=== PATIENT | female | born 1950 | race Caucasian/White ===

== ENCOUNTER 2020-04-23 14:05 | Outpatient (REF) | payer MEDICARE, OTHER, SELFPAY ==
[2020-04-28 02:47] LABS: SARS-CoV-2 RNA Undetected (Undetected); SARS-CoV-2 Specimen Source Nasopharynx
== END 2020-04-23 14:25 ==
LOC: NCHCN 14:05
PROVIDERS: PCP Nurse Practitioner Family; Visit Provider Nurse Practitioner Family
DX: Z20.828 Contact with and (suspected) exposure to other viral communicable diseases (principal)
CPT/HCPCS: U0003

== ENCOUNTER 2020-05-10 00:33 | Outpatient (CLI) | payer MEDICARE, OTHER, SELFPAY ==
--- NOTE | 2020-05-10 | DI.DEXA_ITS ---
EXAM: XR DEXA BONE DENSITY W/WO LAURA CLINICAL HISTORY: SCREENING FOR OSTEOPOROSIS IN POSTMENOPAUSAL WOMAN,Z78.0,PREVENTATIVE TECHNIQUE: COMPARISON: No exams were available for comparison FINDINGS: Lateral Spine Image: Unremarkable. No compression deformities identified. Left hip: Total T-Score: 0.7 Total Z-Score: 2.2 T- and Z-scores: Within normal limits. Lumbar Spine: Total T-Score: 1.5 Total Z-Score: 3.6 T- and Z-scores: Within normal limits. IMPRESSION: No evidence of osteoporosis.
--- NOTE | 2020-05-10 | DI.MAMMO_ITS ---
EXAM: MG MAMMO SCREENING CLINICAL HISTORY: SCREENING, Z12.31,[facility],Z00.00 TECHNIQUE: Bilateral full field digital CC and MLO mammographic images were obtained with 3D tomosyn thesis and utilizing computer aided detection (CAD). COMPARISON: Available for comparison. FINDINGS: Masses/Architectural Distortion: None seen. Microcalcifications: No suspicious pleomorphic-type are seen. Skin Thickening/Nipple Retraction: None. IMPRESSION: 1. No significant interval change with no specific features of malignancy noted. 2. Unless there is more urgent need, screening mammography is recommended, as per [employer] guidelines. BI-RADS Category 1 - Negative Breast Density - Category B - Scattered areas of fibroglandular density A negative radiographic report should not delay biopsy if a dominant or clinically suspicious mass is present. Up to ten percent of cancers are not identified on mammography. A negative report may reinforce clinical impression. Adenosis and dense breasts may obscure an underlying neoplasm. False positive reports average 6 to 10%. Patient will receive a letter notifying them of these results.
== END 2020-05-10 00:53 ==
PROVIDERS: Visit Provider Family Medicine
DX: Z12.31 Encounter for screening mammogram for malignant neoplasm of breast (principal); Z00.00 Encounter for general adult medical examination without abnormal findings; Z78.0 Asymptomatic menopausal state
CPT/HCPCS: 77063; 77067; 77080

== ENCOUNTER 2021-05-30 15:14 | Emergency (ER) | payer OTHER, SELFPAY ==
[2021-05-30 15:20] VITALS: BP 136/82; PULSE 84; RESP 16; TEMP 36.8; O2SAT 96
--- NOTE | 2021-05-30 15:39 | W.ED.GENAD ---
Discharge Plan Disposition Patient Disposition: HOME Condition: Stable Discharge Details Clinical Impression: Allergic reaction Primary Care Provider: Radha Kline ED Provider: Nickie Zaragoza Home Meds and New Rx's Prescriptions: New prednisone 20 mg tablet 40 mg PO DAILY Qty: 6 RF: 0 Continued simvastatin 40 MG tablet 40 mg PO QPM RF: 0 omeprazole 20 MG capsule,delayed release(DR/EC) 20 mg PO DAILY RF: 0 lisinopril-hydrochlorothiazide 1 EACH tablet 1 tab PO DAILY RF: 0 metformin 500 mg tablet 500 mg PO BID RF: 0 Discharge Instructions Instructions: Prednisone (By mouth), General Allergic Reaction (ED) Additional Instructions: You appear to be having in general and allergic reaction. Please take the steroids as prescribed. You were given 1 dose of steroids while here. This is a once daily dosing. Next dose will be due tomorrow afternoon. You may continue with Benadryl or other antihistamine such as Claritin to help with your medic management. You may also try hydrocortisone cream to help with itching. Please try to avoid scratching it as possible. If you develop difficulty breathing, intraoral lesions or other new/worsening symptoms care urgently once again. Otherwise, please follow-up with your primary care in the next 1 to 2 weeks for reevaluation and discuss potential need for referral for allergy testing. Referrals: Radha Kline [Primary Care Provider] - Discharge Data Discharge Date/Time-TO BE ENTERED AT DEPARTURE: 05/30/21 16:01 Medical Decision Making Patient is a pleasant 70-year-old female presenting today with chief complaint of allergic reaction. She reports that she began having itching to her bilateral upper extremities face 3 days ago. Since that time, the symptoms have been worsening and spreading. She now has a urticarial rash to the chest, back and lower face. She denies any difficulty breathing. Used Claritin yesterday. No intraoral lesions. On exam, patient appears nontoxic. No intraoral lesions. Lungs clear, no wheezing or stridor. Urticarial rash to lower face, upper chest, upper back. Her hx and exam is not consistent with anaphylaxis. She has no respiratory involvement. As symptoms have been progressively worsening and this is now on her face, I feel that steroids are appropriate. Will give her a steroid burst. She and I discussed these meds and possible SE. Encouraged close f/u with PCP. She received first dose here. Return precautions discussed, in particular signs of worsening reaction. All of her quesitons and concerns were addressed, she is in agreement with this plan. HPI General Mode of arrival: ambulatory. Date/Time Provider Initiated Documentation: 05/30/21 15:39. Limitations to Documentation: no limitations. Information obtained by: patient and RN notes reviewed. History of Present Illness 70 year old F presents to the emergency department with the chief complaint of allergic reaction, described as moderate, Quality is described as other (itching), and is localized to the face, chest, back, left, right and upper extremity. Patient started experiencing this day(s) (3) and it has been constant. No relieving factors improve symptom(s), No exacerbating factors reported . Patient notes no other symptoms.. Patient did receive the following treatments prior to arrival, none Related Data Home Medications Medication Instructions Recorded Confirmed lisinopril-hydrochlorothiazide 1 tab PO DAILY 04/03/14 05/30/21 omeprazole 20 mg PO DAILY 04/03/14 05/30/21 simvastatin 40 mg PO QPM 04/03/14 05/30/21 metformin 500 mg PO BID 05/30/21 05/30/21 prednisone 40 mg PO DAILY #6 tab 05/30/21 Previous Rx's Medication Instructions Recorded prednisone 40 mg PO DAILY #6 tab 05/30/21 Allergies Allergy/AdvReac Type Severity Reaction Status Date / Time No Known Allergies Allergy Unverified 05/30/21 15:28 General Stated Complaint: Allergic ACACIA: 3 Review of Systems Constitutional Constitutional: Reports as per HPI, Denies chills, Denies fever(s) and Denies headache(s) Eyes Eyes: Reports as per HPI ENT Ears, Nose, Mouth, and Throat: Reports as per HPI and Denies headache(s) Cardiovascular Cardiovascular: Denies chest pain Respiratory Respiratory: Reports as per HPI Gastrointestinal Gastrointestinal: Reports as per HPI Integumentary/Breasts Skin/Breast: Reports as per HPI Neurologic Neurologic: Denies headache(s) [facility] Social History Smoking/Tobacco Use Status: Never Smoking risk assessment performed?: Yes Alcohol Intake: current Alcohol Intake frequency: 0-2 drinks per day Alcohol type: beer, wine and hard liquor Drug use: Never Do you feel safe at home: Yes Do you feel safe in your relationship?: Yes Exam Const General: cooperative, healthy appearing, comfortable, no acute distress and well developed Nutritional Appearance: average body habitus and well nourished Orientation: alert, awake and oriented x3 HENMT Head: normal to inspection Ears: hearing grossly normal bilaterally Face and sinus: abnormal facial exam (urticarial rash lower face, R>L sides) Mouth: oral mucosae normal, lip normal, tongue normal, oropharynx normal, moist mucous membranes, no drooling and no muffled voice Teeth and gingiva: dentition normal Throat: posterior oropharynx normal Eyes General: appearance normal, both eyes and all related structures Neck Neck: normal visual inspection, full ROM, no lymphadenopathy, no meningeal signs and trachea midline Chest Chest: rash (urticarial rash noted) Resp Effort & Inspection: normal respiratory effort, able to speak in complete sentences, no respiratory distress and no use of accessory muscles Auscultation: clear to auscultation bilaterally Cardio Rate: regular rate Rhythm: regular rhythm Heart Sounds: S1 normal and S2 normal Skin Rashes: rashes noted Neuro General: patient alert and patient awake Cognition: normal cognition Speech: speech normal Gait: normal gait Psych Appearance: grossly normal and well kempt Mental Status: mental status grossly normal Speech and Movement: speech and movement normal Course Vital Signs Vital signs: Vital Signs Temperature 36.8 C 05/30/21 15:20 Pulse 84 05/30/21 15:20 Respiratory Rate 16 05/30/21 15:20 Blood Pressure 136/82 05/30/21 15:20 Pulse Oximetry 96 05/30/21 15:20 Temperature 36.8 C 05/30/21 15:20 Temperature Source Oral 05/30/21 15:20 Pulse 84 05/30/21 15:20 Respiratory Rate 16 05/30/21 15:20 Respiratory Effort Non-Labored 05/30/21 15:29 Respiratory Pattern Normal 05/30/21 15:29 Blood Pressure 136/82 05/30/21 15:20 Blood Pressure Position Supine 05/30/21 15:20 Pulse Oximetry 96 05/30/21 15:20 Oxygen Delivery Method Room Air 05/30/21 15:20 Oxygen Flow Rate 0 05/30/21 15:20 Pain Level 0 05/30/21 15:20
[2021-05-30] MEDS: predniSONE 20 MG TAB 40 MG PO (15:55)
[2021-05-30 16:12] VITALS: BP 136/82; PULSE 84; RESP 16; O2SAT 96
== END 2021-05-30 16:01 | disposition home or self-care (01) ==
PROVIDERS: Emergency Provider Physician Assistant; PCP Nurse Practitioner Family
DX: T78.49XA Other allergy, initial encounter (principal); L29.8 Other pruritus; L50.0 Allergic urticaria
CPT/HCPCS: 99283; J7512

== ENCOUNTER 2021-05-30 16:13 | Outpatient (REF) | payer OTHER, SELFPAY ==
[2021-06-01 12:29] LABS: COVID-19 RT-PCR UVMMC Result Negative (Negative)
== END 2021-05-30 16:14 | disposition home or self-care (01) ==
LOC: NCHCN 16:13
PROVIDERS: PCP Nurse Practitioner Family; Visit Provider Nurse Practitioner Family
DX: Z20.822 Contact with and (suspected) exposure to COVID-19 (principal); R05 Cough
CPT/HCPCS: U0003

== ENCOUNTER 2021-07-31 02:28 | Outpatient (CLI) | payer OTHER, SELFPAY ==
--- NOTE | 2021-07-31 | DI.MAMMO_ITS ---
Exam(s) MAMMO SCREENING EXAM: MAMMO SCREENING CLINICAL HISTORY: SCREENING,Z12.39,[id number]. TECHNIQUE: Bilateral full field digital CC and MLO mammographic images were obtained with 3D tomosyn thesis and utilizing computer aided detection (CAD). COMPARISON: Prior mammograms dating back to 2011, the most recent being April 2020. FINDINGS: There are no new spiculated masses nor malignant appearing microcalcification groups. Benign microcalcifications and macrocalcifications again noted bilaterally. There is no significant architectural distortion nor skin thickening-retraction. IMPRESSION: No radiographic evidence of malignancy. BI-RADS Category 1 - Negative Breast Density - Category B - Scattered areas of fibroglandular density Breast density Category C or D implies that the patient has dense breast tissue. Dense breast tissue can make it harder to find cancer on a mammogram. Dense breast tissue is also associated with an incr eased risk of breast cancer. This information about the result of the mammogram report was provided to the patient to raise their awareness. Use this report when you speak with the patient about their risks for breast cancer, which includes their family history. At that time, you may recommend additional screening tests (Ultrasoun d or MRI) as these tests may add significant information. A negative radiographic report should not delay biopsy if a dominant or clinically suspicious mass is present. Up to ten percent of cancers are not identified on mammography. A negative report may reinforce clinical impression. Adenosis and dense breasts may obscure an underlying neoplasm. False positive reports average 6 to 10%. Patient will receive a letter notifying them of these results.
== END 2021-07-31 02:48 ==
PROVIDERS: PCP Nurse Practitioner Family; Visit Provider Pediatrics
DX: Z12.31 Encounter for screening mammogram for malignant neoplasm of breast (principal); R92.0 Mammographic microcalcification found on diagnostic imaging of breast
CPT/HCPCS: 77063; 77067

== ENCOUNTER 2022-12-18 09:44 | Day surgery (SDC) | payer OTHER, SELFPAY ==
--- NOTE | 2022-12-17 20:09 | W.PM.DSUDISC ---
Date of service: 12/18/22 Time of Service: 11:22 Discharge Plan Disposition Patient Disposition: Home Condition: Good Discharge Details Reason For Visit: Screening colonoscopy Attending Provider: Matty Jay Primary Care Provider: Radha Kline Home Meds and New Rx's Prescriptions: Continued collegen biotene capsule 1 cap PO DAILY ferrous sulfate 325 mg (65 mg iron) tablet 325 mg PO DAILY simvastatin 40 MG tablet 40 mg PO QPM omeprazole 20 MG capsule,delayed release(DR/EC) 20 mg PO DAILY lisinopril-hydrochlorothiazide 1 EACH tablet 1 tab PO DAILY metformin 500 mg tablet 500 mg PO BID Discontinued polyethylene glycol 3350 17 gram/dose powder 238 g PO ONCE Qty: 238 0RF Rx Instructions: take per colonoscopy instructions bisacodyl [Dulcolax (bisacodyl)] 5 mg tablet,delayed release (DR/EC) 5 mg PO ONCE Qty: 4 0RF Rx Instructions: take per colonoscopy instructions No Action Fish Oil Capsule 1 cap PO Discharge Instructions Instructions: Colorectal Polyps (GEN), Diverticulosis (GEN), Diverticulosis Diet (GEN) Additional Instructions: Taniya, we were able to complete your colonoscopy today without any difficulty. You had a single rectal polyp. I removed this completely. I will let you know when I have the pathology report. Incidentally, you also have some sigmoid diverticulosis. I have attached some information here regarding diverticulosis, and general recommendations. 1. If tolerated, consume a soft, low fiber diet for 1-2 days. 2. Do not drive, drink alcohol, operate machinery, make critical decisions, or do activities that require coordination or balance for 24 hours. 3. Because air was put into your colon during the procedure, expelling air from your rectum (passing gas or farting) is normal. 4. You may not have a bowel movement for 1-3 days because of the colonoscopy prep. This is normal. 5. Go directly to the emergency room if you notice any of the following: Develop chills (warm to touch), or if you have a thermometer and your temperature is above 101 Difficulty breathing or difficultly swallowing Persistent vomiting Severe abdominal pain, other than gas cramps Severe chest pain Black, tarry stools Any bleeding ? exceeding one tablespoon 6. Call your physician if the site where your intravenous was started becomes red, swollen, painful, and warm to touch. 7. Your physician has reviewed your pre-procedure medications. Please continue to take those medications as previously ordered. You will be given specific information/education regarding any changes to your medications before leaving. Activity:: Activity as Tolerated Diet:: As Tolerated Discharge Orders Discharge Orders: Discharge Order (Routine); Ordered 12/17/22 Ordered By: Matty Jay DS: Diagnosis Discharge Diagnosis (1) Screening for colon cancer: Status: Acute Asessment and Plan: There is a single rectal polyp. Follow-up on pathology report
--- NOTE | 2022-12-17 20:11 | W.COLOREPORT ---
Date of service: 12/18/22 Time of Service: : Colonoscopy Report Date of procedure: 12/18/22 Pre-op diagnosis general: Screening colonoscopy Post-op diagnosis procedure note: other (Rectal polyp, diverticulosis) Procedure: Colonoscopy Surgeon: Matty Jay Anesthesia Type: General:No Airway Estimated blood loss (mL): 5 Pathology: other (Rectal polyp) Complications: None Disposition: same day Indications: Taniya is a 72 year old woman here for another screening colonoscopy Prep: Miralax/Dulcolax Procedure Start Time: 10:53 Procedure End Time: :18 Retraction Time: 18 Findings: Single rectal polyp, sigmoid diverticulosis Procedure Description: After the induction of monitored anesthetic care, and with the patient in left lateral decubitus position, I began by performing an external anorectal exam.? Perineum and skin were normal, as was the anal verge.? There was no evidence of external hemorrhoids.? Next, I performed a digital rectal exam.? I did not appreciate any abnormal findings.? Next, I advanced a colonoscope into the rectal vault.? I performed retroflexion.? This was normal.? There was a single 0.25 cm sessile polyp in the rectum. I removed this with cold forcep polypectomy. There was minimal bleeding. Using insufflation, I then advanced the colonoscope beyond the rectal folds and into the sigmoid colon before advancing towards the cecum.? There was sigmoid diverticulosis. the quality of the prep was adequate.? The scope was noted to be in the cecum by identification of the ileocecal valve and appendiceal orifice.? I then began withdrawing the colonoscope using repeated irrigation as necessary for full evaluation of the colonic mucosa. ?Once the scope was withdrawn to the level of the rectum, great care was taken to examine portions of the rectal folds.? Finally, the scope was withdrawn and the patient was brought to the same-day surgery recovery unit as the anesthetic wore off. ?The findings and instructions were shared with the patient prior to discharge.
[2022-12-18 10:03] VITALS: BP 126/75; PULSE 81; RESP 16; TEMP 36.4; O2SAT 98
[2022-12-18] MEDS: Lactated Ringers 1,000 ML 80 ML IV (10:27)
--- NOTE | 2022-12-18 10:30 | W.ANESPRE ---
General Info Date of Service Date Performed: 12/18/22 Height: 5 ft 4 in Weight: 93.6 kg Body Mass Index (BMI): 35.4 Surgical Procedure: Operation Date: 12/18/22 11:20 Proposed Procedure Side Surgeon ginny Jay MD Meds Allergies and Home Medications Allergies Allergy/AdvReac Type Severity Reaction Status Date / Time No Known Allergies Allergy Unverified 12/17/22 09:02 Home Medication Medication Instructions Recorded lisinopril 10 1 tab PO DAILY 04/03/14 mg-hydrochlorothiazide 12.5 mg tablet omeprazole 20 mg capsule,delayed 20 mg PO DAILY 04/03/14 release simvastatin 40 mg tablet 40 mg PO QPM 04/03/14 metformin 500 mg tablet 500 mg PO BID 05/30/21 ferrous sulfate 325 mg (65 mg 325 mg PO DAILY 08/04/22 iron) tablet collegen biotene 1 cap PO DAILY 12/10/22 omega-3 fatty acids 1 cap PO 12/18/22 Current Visit Medications: Current Medications Generic Name Dose Route Start Last Admin Trade Name Thierry PRN Reason Stop Dose Admin Hyoscyamine Sulfate 0.125 mg 12/17/22 20:13 Hyoscyamine 0.125 Mg Sl/Oral/Chew SL DIRECTED PRN Ringer's Solution 1,000 mls @ 80 mls/hr 12/18/22 06:00 12/18/22 10:27 IV 01/16/23 23:59 80 mls/hr INFUSION DIAZ Administration IV Miscellaneous Supplies 1 each 12/18/22 06:00 Iv Access IV 01/16/23 23:59 DIRECTED DIAZ Ondansetron HCl 4 mg 12/17/22 20:13 Ondansetron 4 Mg/2 Ml Vial IVP Q4H PRN PRN Nausea / Vomiting Sodium Chloride 0 ml 12/18/22 06:00 Normal Saline Flush 10 Ml Syr IV 01/16/23 23:59 PRN PRN Sodium Chloride 0 ml 12/18/22 06:00 Normal Saline 10 Ml Vial IJ 01/16/23 23:59 DIRECTED PRN Sterile Water 0 ml 12/18/22 06:00 Water,Injection,Sterile 10 Ml Vial IJ 01/16/23 23:59 DIRECTED PRN PFSH Active Problems Active Problems: Problem Status Onset Code Urinary incontinence R32 Type 2 diabetes mellitus E11.9 Obesity E66.9 Hyperlipidemia E78.5 Hearing loss H91.90 Primary hypertension I10 GERD (gastroesophageal reflux disease) K21.9 Diverticulosis K57.90 Sleep apnea G47.30 Screening for colon cancer Z12.11 Allergic reaction T78.40XA Medical History Medical History Adjustment reaction with anxiety and depression Benign neoplasm of large bowel Cervicalgia Pelvic and perineal pain Tobacco Smoking/Tobacco Use Status: Never Alcohol Alcohol Intake: current Alcohol intake frequency: 0-2 drinks per day Alcohol type: beer, wine and hard liquor Substance Use Substance use: Never Substance use type: does not use Vital Signs and Lab Results Vital Signs Most Recent Vital Signs in EMR: Most Recent Vital Signs Temp Pulse Resp BP Pulse Ox 36.4 C L 81 16 126/75 98 12/18/22 10:03 12/18/22 10:03 12/18/22 10:03 12/18/22 10:03 12/18/22 10:03 Point of Care Results Point of Care Results: Finger Stick Blood Glucose 154 12/18/22 09:56 Lab Results Blood Type / Crossmatch: No Data to Display Complete Blood Count: No Data to Display Complete Metabolic Panel: No Data to Display Liver Function Panel: No Data to Display Coagulation Panel: No Data to Display Cardiac Panel: No Data to Display Arterial Blood Gas: No Data to Display Venous Blood Gas: No Data to Display Pancreas Panel: No Data to Display Thyroid Panel: No Data to Display Infectious Disease: No Data to Display Blood Cultures: No Data to Display Toxicology Panel: No Data to Display Anesthesia Assessment and Plan Anesthesia History Personal History: No History of Anesthesia Complications Family History: No Family History of Anesthesia Complications Exercise Tolerance Exercise Tolerance: Metabolic Equivalents>4 Pertinent Negatives Pertinent Negatives: No Major Cardiovascular Symptoms or Complaints and No Major Pulmonary Symptoms or Complaints Cardiac & Pulmonary Exam Cardiac Exam: Normal S1/S2 Heart Sounds Pulmonary Exam: Clear Bilateral Breath Sounds Implantable Cardiac Device Does patient have a Pacemaker or an ICD?: No Airway Exam Known Difficult Airway: No Mallampati Class: 2 Mouth Opening: Normal (> 3cm) Thyromental Distance: Greater than 3 cm Neck Range of Motion: Full ROM Neck Circumference: Normal Teeth Condition: Normal Dentition ASA Classification ASA Score: ASA 2 Emergency Case?: No NPO Status NPO Status: NPO Clears >2 hours, Solids >8 hours Anesthesia Plan Resuscitation Status: Full Code Anesthesia Technique: General Anesthesia Airway Planned: Natural Airway Monitors Used: Standard Monitors
--- NOTE | 2022-12-18 10:56 | BOWEL_PTH ---
PATIENT: Taniya Zambrano LOC: [facility] U#:[id number] AGE/SX: 72/F ROOM: RE12/18/[address]: Matty Jay MD : 1950 BED: DIS: 12/18/2022 SPEC #: [id number] RECD: 12/18/22 12:08 STATUS: YANG REQ #: [id number] TERESA: 12/18/22 10:[address]: Matty Jay DEPT: Surgical Specimen RECD BY: Hailey Coreas ENTERED: 12/18/22 12:08 SP TYPE: Bowel OTHR DR: Radha Kline Tissues: 1 - BIOPSY BOWEL Procedures: GROSS AND MICRO LEVEL 4 Comments: [id number]
[2022-12-18 11:28] VITALS: BP 117/61; PULSE 72; RESP 16; TEMP 36.2; O2SAT 96
[2022-12-18 12:08] VITALS: BMI 35.4
--- NOTE | 2022-12-18 12:09 | W.ANESPOSTOP ---
Postoperative Evaluation Date, Time and Location Date Performed: 12/18/22 Time Performed: 11:35 Patient Location: Day Surgery Unit Vital Signs Most Recent Imported Vital Signs: Most Recent Vital Signs Temp Pulse Resp BP Pulse Ox 36.2 C L 72 16 117/61 96 12/18/22 11:28 12/18/22 11:28 12/18/22 11:28 12/18/22 11:28 12/18/22 11:28 Pain Score Most Recent Pain Score: Most Recent Pain Score Pain Level 0 12/18/22 11:28 Assessment Mental Status: Awake (Alert & Oriented to Patient Baseline) Airway and Respiratory Function: Patent airway with normal (patient baseline) respiratory exam Cardiovascular Function: Hemodynamically Stable Hydration Status: Adequately Hydrated Nausea & Vomiting: No Nausea or Vomiting Pain: Pt. Denies Any Pain Peripheral Nerve Block: Patient did not receive a nerve block
[2022-12-18 12:28] VITALS: BP 136/83; PULSE 70; RESP 18; TEMP 36.6; O2SAT 96
== END 2022-12-18 12:39 | disposition home or self-care (01) ==
LOC: SUR 09:44
PROVIDERS: PCP Nurse Practitioner Family; Visit Provider Surgery
PROC: 0DJD8ZZ Inspection of Lower Intestinal Tract, Via Natural or Artificial Opening Endoscopic (ICD-10-PCS; CPT 45378; principal; 2022-12-18 11:15)
DX: Z12.11 Encounter for screening for malignant neoplasm of colon (principal); K62.1 Rectal polyp; K57.30 Diverticulosis of large intestine without perforation or abscess without bleeding
CPT/HCPCS: 45380; 88305

== ENCOUNTER 2023-01-13 01:23 | Outpatient (CLI) | payer OTHER, SELFPAY ==
--- NOTE | 2023-01-13 | DI.MAMMO_ITS ---
Exam(s) MAMMO SCREENING EXAM: MAMMO SCREENING CLINICAL HISTORY: SCREENING, Z12.31, [id number] TECHNIQUE: Bilateral full field digital CC and MLO mammographic images were obtained with 3D tomosyn thesis and utilizing computer aided detection (CAD). COMPARISON: Available for comparison. FINDINGS: Masses/Architectural Distortion: None seen. Microcalcifications: No suspicious pleomorphic-type are seen. Stable benign-appearing calcifications are seen in both breasts. Skin Thickening/Nipple Retraction: None. IMPRESSION: 1. No significant interval change with no specific features of malignancy noted. 2. Unless there is more urgent need, screening mammography is recommended, as per [employer] guidelines. BI-RADS Category 2 - Benign Findings Breast Density - Category B - Scattered areas of fibroglandular density Breast density category C or D implies that the patient has dense breast tissue. Dense breast tissue is very common and is not abnormal but dense breast tissue can make it harder to find cancer on a ma mmogram. Also, dense breast tissue may increase their breast cancer risk. This information about the result of the mammogram report was provided to the patient to raise their awareness. Use this report when you speak with the patient about their risks for breast cancer, which includes their family hist ory. At that time, you may recommend for more screening tests (Ultrasound or MRI) as they might be us eful based on their risk. A negative radiographic report should not delay biopsy if a dominant or clinically suspicious mass is present. Up to ten percent of cancers are not identified on mammography. A negative report may reinforce clinical impression. Adenosis and dense breasts may obscure an underlying neoplasm. False positive reports average 6 to 10%. Patient will receive a letter notifying them of these results.
== END 2023-01-13 01:43 ==
LOC: DI 01:23
PROVIDERS: PCP Nurse Practitioner Family; Visit Provider Internal Medicine
DX: Z12.31 Encounter for screening mammogram for malignant neoplasm of breast (principal); N60.81 Other benign mammary dysplasias of right breast; N60.82 Other benign mammary dysplasias of left breast
CPT/HCPCS: 77063; 77067

== ENCOUNTER → 2024-01-26 02:19 | Outpatient (CLI) | payer OTHER, SELFPAY ==
--- NOTE | 2024-01-26 | DI.MAMMO_ITS ---
Exam(s) MAMMO SCREENING EXAM: MAMMO SCREENING CLINICAL HISTORY: CT AUTH# [id number] SCREENING Z12.31. TECHNIQUE: Bilateral full field digital CC and MLO mammographic images were obtained with 3D tomosyn thesis and utilizing computer aided detection (CAD). COMPARISON: Prior mammograms were reviewed. FINDINGS: There has been no significant change in the appearance and distribution of the fibroglandular tissue. Multiple benign micro and macro calcifications are again noted in both breast. There are no new spiculated masses nor malignant appearing microcalcification groups. There is no significant architectural distortion nor skin thickening-retraction. IMPRESSION: No radiographic evidence of malignancy. BI-RADS Category 1 - Negative Breast Density - Category A - Almost entirely fatty Breast density Category C or D implies that the patient has dense breast tissue. Dense breast tissue can make it harder to find cancer on a mammogram. Dense breast tissue is also associated with an incr eased risk of breast cancer. This information about the result of the mammogram report was provided to the patient to raise their awareness. Use this report when you speak with the patient about their risks for breast cancer, which includes their family history. At that time, you may recommend additional screening tests (Ultrasoun d or MRI) as these tests may add significant information. A negative radiographic report should not delay biopsy if a dominant or clinically suspicious mass is present. Up to ten percent of cancers are not identified on mammography. A negative report may reinforce clinical impression. Adenosis and dense breasts may obscure an underlying neoplasm. False positive reports average 6 to 10%. Patient will receive a letter notifying them of these results.
== END ==
PROVIDERS: PCP Nurse Practitioner Family
DX: Z12.31 Encounter for screening mammogram for malignant neoplasm of breast (principal); R92.313 Mammographic fatty tissue density, bilateral breasts
CPT/HCPCS: 77063; 77067

== ENCOUNTER 2025-01-30 01:00 | Outpatient (CLI) | payer OTHER, SELFPAY ==
--- NOTE | 2025-01-30 | DI.MAMMO_ITS ---
Exam(s) MAMMO SCREENING EXAM: MAMMO SCREENING CLINICAL HISTORY: Screening, Z12.31; Auth #[id number]. TECHNIQUE: Bilateral full field digital CC and MLO mammographic images were obtained with 3D tomosyn thesis and utilizing computer aided detection (CAD). COMPARISON: Prior mammograms were reviewed. FINDINGS: There has been no significant change in the appearance and distribution of the fibroglandular tissue. Faint asymmetric nodular density laterally in the right breast is unchanged from prior mammograms and is probably benign intramammary lymph node. There are numerous benign appearing micro and macro calcifications again noted throughout both breast s. There are no new spiculated masses nor new malignant appearing microcalcification groups. There is no significant architectural distortion nor skin thickening-retraction. IMPRESSION: No radiographic evidence of malignancy. Stable benign-appearing findings. BI-RADS Category 2 - Benign Findings Breast Density - Category A - Almost entirely fatty Breast density Category C or D implies that the patient has dense breast tissue. Dense breast tissue can make it harder to find cancer on a mammogram. Dense breast tissue is also associated with an incr eased risk of breast cancer. This information about the result of the mammogram report was provided to the patient to raise their awareness. Use this report when you speak with the patient about their risks for breast cancer, which includes their family history. At that time, you may recommend additional screening tests (Ultrasoun d or MRI) as these tests may add significant information. A negative radiographic report should not delay biopsy if a dominant or clinically suspicious mass is present. Up to ten percent of cancers are not identified on mammography. A negative report may reinforce clinical impression. Adenosis and dense breasts may obscure an underlying neoplasm. False positive reports average 6 to 10%. Patient will receive a letter notifying them of these results.
== END 2025-01-30 01:20 ==
PROVIDERS: PCP Nurse Practitioner Family; Visit Provider Nurse Practitioner Family
DX: Z12.31 Encounter for screening mammogram for malignant neoplasm of breast (principal); R92.313 Mammographic fatty tissue density, bilateral breasts; D24.1 Benign neoplasm of right breast
CPT/HCPCS: 77063; 77067